=== PATIENT | female | born 1980 | race Caucasian/White ===

== ENCOUNTER 2018-02-07 19:59 | Emergency (ER) | END 2018-02-08 00:25 | disposition home or self-care (01) ==

== ENCOUNTER 2018-09-25 10:47 | Emergency (ER) | payer BC ==
[~2018-09-25] VITALS: Ht 157.5 cm; Wt 70.0 kg
[~2018-09-25 10:47] MED LIST: DOCU-144 PO; FERR325T5 PO
[2018-09-25 10:52] VITALS: BP 130/81; PULSE 77; RESP 20; Ht 157.5 cm; Wt 70.0 kg
[2018-09-25] MEDS ORDERED: IBUPROFEN 600 MG TAB PO ONE (11:30)
[2018-09-25] MEDS ORDERED: BENZ-6 PO (12:31)
[2018-09-25] MEDS ORDERED: AZIT250T PO (12:31)
[2018-09-25] MEDS ORDERED: IBUP-1542 PO (12:32)
[2018-09-25] MEDS ORDERED: PRED20TA PO (12:32)
[2018-09-25] MEDS ORDERED: ALBU8.5H8 INH (12:32)
--- NOTE | 2018-09-25 12:38 | ERD ---
ER Documentation Chief Complaint Chief Complaint Complains of a cough with chest wall pain x 2 weeks HPI Patient is a 38-year-old female presents the ER for concerns of a cough chest wall pain times 2 weeks. Patient states her cough is probably drainage. Patient denies any fevers, chills, hemoptysis, shortness of breath. Patient denies any wheezing. Patient states that her chest wall pain is apparently present when coughing. At rest pain is minimal. Patient denies any radiating pain. Patient denies any recent leg swelling, history DVT/PE, recent travel or recent surgeries. Patient is requesting refill of inhaler as she states she has used an inhaler which has helped in the past. ROS All systems reviewed and are negative except as per history of present illness. Medications Home Meds Active Scripts Ibuprofen* (Motrin*) 600 Mg Tab, 600 MG PO Q6, #30 TAB Prov:JUDITH ANGEL PA-C 09/25/18 Albuterol Sulfate* (Proair HFA*) 8.5 Gm Hfa.aer.ad, 2 PUFF INH Q4, #1 INHALER Prov:JUDITH ANGEL PA-C 09/25/18 Prednisone* (Prednisone*) 20 Mg Tab, 40 MG PO DAILY for 4 Days, TAB Prov:JUDITH ANGEL PA-C 09/25/18 Azithromycin* (Zithromax*) 250 Mg Tablet, 250 MG PO .ZPACK DIRECTED, #6 TAB TAKE 500 MG (2 TABS) THE FIRST DAY THEN 250 MG (1 TAB) DAYS 2-5 Prov:JUDITH ANGEL PA-C 09/25/18 Benzonatate* (Tessalon Perle*) 100 Mg Capsule, 100 MG PO Q8H PRN for COUGH, #20 CAP Prov:JUDITH ANGEL PA-C 09/25/18 Docusate Sodium* (Colace*) 100 Mg Capsule, 100 MG PO TID, #30 CAP Prov:ELICIA VALENCIA 02/07/18 Ferrous Sulfate (Ferrous Sulfate) 325 Mg Tablet.dr, 325 MG PO BID for 30 Days Prov:ELICIA VALENCIA 02/07/18 Allergies Allergies: Coded Allergies: Sulfa (Sulfonamide Antibiotics) (Verified Allergy, Unknown, hives, 02/07/18) acetaminophen (Verified Allergy, Unknown, 02/07/18) hydrocodone (Verified Allergy, Unknown, 02/07/18) morphine (Verified Allergy, Unknown, 02/07/18) PMhx/Soc Medical and Surgical Hx: pt denies Medical Hx, pt denies Surgical Hx Hx Alcohol Use: No Hx Substance Use: No Hx Tobacco Use: No Smoking Status: Never smoker FmHx Family History: No diabetes Physical Exam Vitals Vital Signs Date Temp Pulse Resp B/P (MAP) Pulse Ox O2 O2 Flow FiO2 Time Delivery Rate 09/25/18 98.3 77 20 130/81 98 10:52 (97) Physical Exam GENERAL: Well-developed, well-nourished female. Appears in no acute distress. Speaking in full sentences. HEAD: Normocephalic, atraumatic. EYES: Pupils are equally reactive bilaterally. EOMs grossly intact. No conjunctival erythema. ENT: Moist mucous membranes. No uvula deviation. No kissing tonsils. NECK: Supple. No meningismus. Normal range of motion of the neck. LUNG: Clear to auscultation bilaterally. No rhonchi, wheezing, rales or coarse breath sounds. No signs of respiratory distress. No abdominal retractions, no nasal flaring, no tripoding. HEART: Regular rate and rhythm. No murmurs, rubs or gallops. EXTREMITIES: Equal pulses bilaterally. No peripheral clubbing, cyanosis or edema. No unilateral leg swelling. NEUROLOGIC: Alert and oriented. Moving all four extremities without any difficulty. Normal speech. Steady gait. SKIN: Normal color. Warm and dry. No rashes or lesions. Results 24 hrs Laboratory Tests Test 09/25/18 11:31 POC Beta HCG, Qualitative NEGATIVE Current Medications Medications Dose Sig/Bina Start Time Status Last (Trade) Ordered Route PRN Stop Time Admin Dose Reason Admin Ibuprofen 600 mg ONCE ONCE 09/25/18 DC 09/25/18 (Motrin) PO 11:30 11:45 09/25/18 11:31 Procedures/MDM ED COURSE: The patient was stable throughout ED course. I kept the patient and/or family informed of laboratory and diagnostic imaging results throughout the ED course. EKG: Read by Dr. Hay, attending physician. EKG shows normal sinus rhythm at a rate of 63 bpm No arrhythmias, acute ST elevations or T wave changes were noted. DIAGNOSTIC IMAGING: Read by radiologist. Patient: RAYSHAWN LUNA : 1980 Age: 38 Sex: F MR #: [id number] DOS: 09/25/18 1120 Ordering MD: JUDITH ANGEL PA-C Location: [facility] Room/Bed: PROCEDURE: XR Chest. CLINICAL INDICATION: cough x 1 week TECHNIQUE: Single view chest x-ray. COMPARISON: None. FINDINGS: The cardiomediastinal silhouette is normal in size and contour. No consolidation, pleural effusion, or pneumothorax is seen. Mild central peribronchial cuffing. The osseous structures are unremarkable. IMPRESSION: 1. Mild central peribronchial cuffing, consider airway disease such as asthma or bronchitis in the appropriate clinical setting. RPTAT: PP Physician [place] Date Time Electronically viewed and signed by Shayla Harry Physician on 09/25/2018 11:44 RP/ CC: JUDITH ANGEL PA-C [id number] MEDICAL DECISION MAKING: This is a 38-year-old female who presents with cough and chest wall pain times 2 weeks post x-ray was concerning for. Patient was afebrile. Patient was not hypoxic. Patient denied recent travel. Cardiac exam was normal. Lung exam was normal. EKG was within normal limits. Chest x-ray was concerning for bronchitis versus asthma. At this time, the patient presentation is consistent with bronchitis. On pelvic treat patient with course of antibiotics. Patient will be given refill of inhaler per her request. Low suspicion for te coronary syndrome, pneumothorax, pneumonia,, PE TB, influenza, pertussis, GERD, allergic rhinitis. Patient was nontoxic, [id number] prior to discharge. PRESCRIPTIONS: Ibuprofen, pro-air inhaler, prednisone, azithromycin max, Tessalon Perles DISCHARGE: At this time, patient is stable for discharge and outpatient management. I have instructed the patient to follow-up with his/her primary care physician in 1-2 days. If symptoms persist, patient may need to see a specialist for further examinations and testing. I have instructed the patient to promptly return to the ER at any time for any new or worsening symptoms including increased increased pain, fever, nausea, vomiting, numbness, shortness of breath, weakness, ongoing wheezing, retractions or LOC. The patient and/or family expressed understanding of and agreement with this plan. All questions were answered. Home care instructions were provided. Disclaimer: Inadvertent spelling and grammatical errors are likely due to EHR/dictation software use and do not reflect on the overall quality of patient care. Also, please note that the electronic time recorded on this note does not necessarily reflect the actual time of the patient encounter. Departure Diagnosis: Primary Impression: Bronchitis Condition: Stable Patient Instructions: Bronchitis, Antiobiotic Treatment (Adult) Referrals: [facility] YOU HAVE RECEIVED A MEDICAL SCREENING EXAM AND THE RESULTS INDICATE THAT YOU DO NOT HAVE A CONDITION THAT REQUIRES URGENT TREATMENT IN THE EMERGENCY DEPARTMENT. FURTHER EVALUATION AND TREATMENT OF YOUR CONDITION CAN WAIT UNTIL YOU ARE SEEN IN YOUR DOCTORS OFFICE WITHIN THE NEXT 1-2 DAYS. IT IS YOUR RESPONSIBILITY TO MAKE AN APPOINTMENT FOR FOLOW-UP CARE. IF YOU HAVE A PRIMARY DOCTOR --you should call your primary doctor and schedule an appointment IF YOU DO NOT HAVE A PRIMARY DOCTOR YOU CAN CALL OUR PHYSICIAN REFERRAL HOTLINE AT IF YOU CAN NOT AFFORD TO SEE A PHYSICIAN YOU CAN CHOSE FROM THE FOLLOWING [facility] [address] [facility]. [facility] [address] [facility]. [facility] [address] [facility] [facility] [address] [facility] [facility] [address] [facility]. [facility]. [address] [facility]. [facility] YOU HAVE RECEIVED A MEDICAL SCREENING EXAM AND THE RESULTS INDICATE THAT YOU DO NOT HAVE A CONDITION THAT REQUIRES URGENT TREATMENT IN THE EMERGENCY DEPARTMENT. FURTHER EVALUATION AND TREATMENT OF YOUR CONDITION CAN WAIT UNTIL YOU ARE SEEN IN YOUR DOCTORS OFFICE WITHIN THE NEXT 1-2 DAYS. IT IS YOUR RESPONSIBILITY TO MAKE AN APPOINTMENT FOR FOLOW-UP CARE. IF YOU HAVE A PRIMARY DOCTOR --you should call your primary doctor and schedule and appointment IF YOU DO NOT HAVE A PRIMARY DOCTOR YOU CAN CALL OUR PHYSICIAN REFERRAL HOTLINE AT . IF YOU CAN NOT AFFORD TO SEE A PHYSICIAN YOU CAN CHOSE FROM THE FOLLOWING [facility] IN[facility]IONS: [facility] [address] [place] [address] [facility] [address] [place] [address] [facility] + [facility] [address] [place] [address] Additional Instructions: Call your primary care doctor TOMORROW for an appointment during the next 1-2 days.See the doctor sooner or return here if your condition worsens before your appointment time. JUDITH ANGEL PA-C Sep 25, 2018 12:38
== END 2018-09-25 12:40 | disposition home or self-care (01) ==
LOC: FTE 10:47
DX: J40 Bronchitis, not specified as acute or chronic (principal)
CPT/HCPCS: 71045; 81025; 93005; 99284; Z7610